=== PATIENT | female | born 1965 | race Caucasian/White ===

== ENCOUNTER → 2023-10-02 15:55 | Outpatient (REF) | payer BC, SELFPAY | LOC: RAD 15:55 | PROVIDERS: ATTENDING PHYSICIAN Internal Medicine; FAMILY PHYSICIAN Family Medicine | DX: M16.11 Unilateral primary osteoarthritis, right hip (principal); M25.551 Pain in right hip; M70.71 Other bursitis of hip, right hip | CPT/HCPCS: 73502 ==

== ENCOUNTER → 2023-10-10 09:42 | Outpatient (REF) | payer BC, SELFPAY | LOC: WDC 09:42 | PROVIDERS: ATTENDING PHYSICIAN Obstetrics & Gynecology Gynecology; FAMILY PHYSICIAN Family Medicine | DX: R92.30 Dense breasts, unspecified (principal) | CPT/HCPCS: 76641 ==

== ENCOUNTER → 2024-04-11 13:44 | Outpatient (REF) | payer BC, SELFPAY | LOC: WDC 13:44 | PROVIDERS: ATTENDING PHYSICIAN Obstetrics & Gynecology Gynecology; FAMILY PHYSICIAN Family Medicine | DX: Z12.31 Encounter for screening mammogram for malignant neoplasm of breast (principal) | CPT/HCPCS: 77063; 77067 ==

== ENCOUNTER 2024-04-18 06:23 | Day surgery (SDC) | payer BC, SELFPAY | END 2024-04-18 10:52 | disposition home or self-care (01) | LOC: GI 06:23 | PROVIDERS: ATTENDING PHYSICIAN Internal Medicine; FAMILY PHYSICIAN Family Medicine | DX: Z12.11 Encounter for screening for malignant neoplasm of colon (principal); K57.30 Diverticulosis of large intestine without perforation or abscess without bleeding; K64.9 Unspecified hemorrhoids; K56.2 Volvulus; Q43.8 Other specified congenital malformations of intestine; Z87.19 Personal history of other diseases of the digestive system; Z86.0100 Personal history of colon polyps, unspecified | CPT/HCPCS: G0105 ==

== ENCOUNTER → 2024-06-27 16:50 | Outpatient (REF) | payer BC, SELFPAY | LOC: RAD 16:50 | PROVIDERS: ATTENDING PHYSICIAN Nurse Practitioner; FAMILY PHYSICIAN Family Medicine | DX: K57.92 Diverticulitis of intestine, part unspecified, without perforation or abscess without bleeding (principal) | CPT/HCPCS: 74177; Q9967 ==

== ENCOUNTER → 2024-10-01 09:47 | Outpatient (REF) | payer BC, SELFPAY | LOC: WDC 09:47 | PROVIDERS: ATTENDING PHYSICIAN Obstetrics & Gynecology Gynecology; FAMILY PHYSICIAN Family Medicine | DX: R92.30 Dense breasts, unspecified (principal) | CPT/HCPCS: 76641 ==

== ENCOUNTER 2024-11-17 14:28 | Emergency (ER) | payer BC, SELFPAY ==
[2024-11-17] VITALS (9 sets, daily range): BP systolic 124–147; BP diastolic 74–112; BMI 23.4
--- NOTE | 2024-11-17 15:53 | ED.GENMED ---
History of Present Illness
General
Chief Complaint: Chest Pain
Source: patient
Exam Limitations: none
Time Seen by Provider: 11/17/24 15:04
Nursing documentation reviewed up to this point in time: agreed with
History of Present Illness
History of Present Illness:
patient with history of hypertension, presents to ED secondary to sudden onset of chest pain starting last night around 7:30 PM, an approximate 2 hours after having [place] food for dinner. Patient initially attributed her pain as reflux and
proceeded to take Pepto-Bismol, without improvement in symptoms. Chest pain described as 'discomfort', across her chest, without alleviating or exacerbating factors. When she woke up this morning at 6:30 AM, she still had similar discomfort, but
not as severe, but on the left side of her chest. Overall, patient states that she 'did not feel good'. Since then, symptoms have been intermittent in intensity. Patient denies having had previous similar chest pain. Denies recent travel or
surgery. Denies recent illness. Denies recent change in medications or diet. There is no family history of coronary artery disease. Denies of leg pain or swelling. Denies back pain.
Past History
Past History
ED Past Medical History: HTN and Other
ED Past Surgical History: Other
Social History
Personal:
Living: with family
Employment: Employed
Review of Systems
Review of Systems
Allergies reviewed?: Yes
All Other Systems: ROS reviewed and negative except as documented in HPI and ROS
Constitutional: Reports no symptoms
Respiratory: Reports no symptoms
Cardiac: Reports chest pain
ABD/GI: Reports no symptoms
Musculoskeletal: Reports no symptoms
Skin: Reports no symptoms
Neurological: Reports no symptoms
Phy Exam
Physical Exam
Physical Exam:
Physical Exam
General: mild distress, not acutely ill. afebrile
Head: nc/at. eomi
Neck: supple. normal range of motion.
Heart: s1/s2 regular rate and rhythm
Lungs: no acute respiratory distress. clear bilaterally. chest wall nontender to palpation
Abdomen: normal bowel sounds. not tender.
Neuro: alert and oriented x 3. no focal neurological deficits
Skin: no rash
Psychiatric: well kept. interactive and cooperative
Extremities: no edema. no calf tenderness.
Scores
Heart Score for Chest Pain Patients
STEMI patient?: No
History: Slightly or Non-Suspicious
ECG: Normal
Age: >45 - <65 years
Risk Factors: 1 or 2 Risk Factors
Troponin: </= Normal Limit
Heart Score for Chest Pain Patients: 2
Heart Score Risk: 2.5% MACE over next 6 weeks
Course
Orders/Labs/Results
Orders:
Orders
11/17/24 14:30
Electrocardiogram (*1) Urgent
Reason for Study: Chest Pain
EKG- Treatment ONCE
11/17/24 15:28
Aspirin Chewable [Low Strength Aspirin] 324 mg PO NOW STA
CR Chest Portable - 1 View Urgent
Comment:
Reason For Exam: chest pain
Reason Study Needs to be Portable: Patient Unstable
11/17/24 15:55
Complete Blood Count/With Diff Urgent
Comprehensive Metabolic Panel Urgent
Magnesium Urgent
Troponin I Urgent
11/17/24 17:47
EKG- Treatment ONCE
11/17/24 19:00
Electrocardiogram (*1) Urgent
Reason for Study: Chest Pain
11/17/24 19:09
Troponin I Urgent
Abnormal Lab Results
11/17/24
15:55
RBC 4.18 L 10^6/uL
(4.20-5.40)
MCH 31.3 H pg
(27.0-31.0)
Creatinine 0.5 L mg/dL
(0.6-1.0)
Glucose 119 H mg/dl
(70-99)
11/17/24 15:55
11/17/24 15:55
Vital Signs
Initial and Last Documented VS:
Initial Vital Signs
Temp Pulse Resp BP Pulse Ox
98.4 F 88 16 136/91 98
11/17/24 14:31 11/17/24 14:31 11/17/24 14:31 11/17/24 14:31 11/17/24 14:31
Last Documented Vital Signs
Temp Pulse Resp BP Pulse Ox
98.4 F 77 18 124/77 99
11/17/24 14:31 11/17/24 20:00 11/17/24 20:00 11/17/24 20:00 11/17/24 19:30
MDM/Problems Addressed
MDM/Problems Addressed:
Patient with an unremarkable workup in ED, including repeat EKG and troponin. Patient reports resolution of symptoms during observation. After discussion, decision made to discharge patient home with referral to cardiology via chest pain hotline.
Patient advised return to ED with recurrent chest pain. Patient expressed understanding, at time of discharge, to the care of her spouse.
*Pulse Oximetry
SaO2: 98
Oxygen Mode of Delivery: Room air
Patient hypoxic: no
*EKG
Interpreted by ED Provider?: Yes
EKG Intrepretation Date: 11/17/24
Heart Rate: 84
Rate: normal
Rhythm: sinus
[place]: normal axis
Interval: normal interval
Ischemia: non-specific ST changes
*Critical Care Note
Total Time (30-74mins, 75-104mins- exclusive of procedures): Not Applicable
ED Attending Note
-
Portions of this chart may have been created with voice recognition software.� Occasional wrong word or��sound alike� substitutions may have occurred due to the inherent limitations of voice recognition software.
Discharge Plan
Departure
Patient Disposition: Home (Routine Discharge)
Date of Disposition: 11/17/24
Time of Disposition: 20:01
Patient with high blood pressure during this ER visit?: Yes
Condition: Fair
Discharge Problem:
Chest pain
Instructions: Chest Pain CBC Follow Up
Prescriptions:
No Action
meloxicam 7.5 MG tablet
7.5 mg PO DAILY
lisinopril 10 MG tablet
10 mg PO DAILY
bismuth subsalicylate [Pepto-Bismol] 262 mg/15 mL Suspension
1,048 mg PO DAILYPRN PRN (Reason: stomachache)
magnesium 250 mg Tablet
250 mg PO HS
Referrals:
Queta Ortega MD [Family Provider, Family Practice]
Rahul Moses MD [Active, Cardiology]
Activity Restrictions/Additional Instructions:
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 Please consider return to ED with recurrent chest pain.
Interventions
Interventions:
*Risk Screen - Suicide Last Done: 11/17/24 14:32
*General Assessment Last Done: 11/17/24 17:50
*Neglect/Abuse Screening Last Done: 11/17/24 14:32
*ED- Fall Risk Assessment Last Done: 11/17/24 17:50
*ED COVID-19 Vaccine History Last Done: 11/17/24 17:50
*Nursing Disposition Last Done: 11/17/24 20:11
ED- Cardiac Assessment Last Done: 11/17/24 19:44
Discharge Date and Time
Discharge Date/Time: 11/17/24 20:11
Print Language: MALTESE
[2024-11-17] MEDS: LOW STRENGTH ASPIRIN 324 MG PO (15:56)
[2024-11-17 16:08] LABS: Hematocrit 38.1 % (37.0-47.0); Hemoglobin 13.1 g/dL (12.0-16.0); Mean Corp Hgb Conc. 34.4 g/dL (33.0-37.0); Mean Corpuscular Volume 91.1 fL (81.0-99.0); Nucleated Red Blood Cells % 0 %; Platelet Count 241 10^3/uL (130-400); Red Cell Dist. Width 12.2 % (11.5-14.5)
[2024-11-17 16:20] LABS: ALT (SGPT) 25 U/L (0-35); AST (SGOT) 34 U/L (14-36); Albumin 4.7 g/dl (3.5-5.0); Alkaline Phosphatase 41 U/L (38-126); Blood Urea Nitrogen 17 mg/dl (7-17); Calcium 9.7 mg/dl (8.4-10.2); Carbon Dioxide 29 mmol/L (22-30); Chloride 104 mmol/L (98-107); Glucose 119 mg/dl (70-99); Magnesium 2.3 mg/dl (1.6-2.3); Potassium 4.2 mmol/L (3.5-5.1); Sodium 139 mmol/L (135-145); Total Protein 7.9 g/dl (6.3-8.2); eGFR > 60.00
[2024-11-17 16:31] LABS: Troponin I 0.013 ng/ml
[2024-11-17 19:38] LABS: Troponin I < 0.012 ng/ml
== END 2024-11-17 20:11 | disposition home or self-care (01) ==
LOC: EMR 14:28
PROVIDERS: EMERGENCY PHYSICIAN Emergency Medicine; FAMILY PHYSICIAN Family Medicine
DX: R07.9 Chest pain, unspecified (principal); I10 Essential (primary) hypertension
CPT/HCPCS: 99284; 71045; 80053; 83735; 84484; 85025; 93005

== ENCOUNTER → 2024-11-21 13:33 | Outpatient (REF) | payer BC, SELFPAY | LOC: RCS 13:33 | PROVIDERS: ATTENDING PHYSICIAN Internal Medicine Cardiovascular Disease; FAMILY PHYSICIAN Family Medicine | DX: I10 Essential (primary) hypertension (principal) | CPT/HCPCS: 93017 ==

== ENCOUNTER → 2024-11-29 11:05 | Outpatient (REF) | payer BC, SELFPAY | LOC: HWRCS 11:05 | PROVIDERS: ATTENDING PHYSICIAN Internal Medicine Cardiovascular Disease; FAMILY PHYSICIAN Family Medicine | DX: I10 Essential (primary) hypertension (principal) | CPT/HCPCS: 93306 ==